=== PATIENT | male | born 2000 | race Two or more races ===

== ENCOUNTER 2022-07-30 05:51 | Outpatient (CLI) | payer OTHER | END 2022-07-30 05:52 | disposition EMS.NT | LOC: EMS 05:51 | DX: Z04.1 Encounter for examination and observation following transport accident (principal) ==

== ENCOUNTER 2024-01-13 00:26 | Emergency (ER) | payer OTHER ==
--- NOTE | 2024-01-13 01:17 | ED Physician Documentation ---
PD HPI SKIN - Stated complaint Stated Complaint: CAT SCRATCH ON FACE - Chief complaint Chief Complaint: Laceration - History obtained from History obtained from: Patient - Additional information Additional information: 23yM presents s/p cat scratch to left philtrum tonight. utd on childhood vaccines including tetanus. denies other injury. PD PAST MEDICAL HISTORY - Past Medical History Past Medical History: No - Past Surgical History Past Surgical History: No - Present Medications Home Medications: Ambulatory Orders Medication Instructions Recorded Confirmed No Known Home Medications 01/13/24 01/13/24 - Allergies Allergies/Adverse Reactions: Allergies Allergy/AdvReac Type Severity Reaction Status Date / Time Penicillins Allergy Unknown Verified 01/13/24 00:37 - Social History Does the pt smoke?: No Smoking Status: Never smoker Does the pt drink ETOH?: No Does the pt have substance abuse?: No - Immunizations Immunizations are current?: Yes - POLST Patient has POLST: No PD ED PE NORMAL - Vitals Vital signs reviewed: Yes - General General: Alert and oriented X 3, No acute distress, Well developed/nourished - HEENT HEENT: Atraumatic, PERRL, EOMI, Moist mucous membranes, Pharynx benign, Other (L philtrum vertical 1.5cm laceration extending across cesario border) Results - Vitals Vitals: Vital Signs - 24 hr 01/13/24 00:34 Temperature 36.5 C Heart Rate 105 H Respiratory 16 Rate Blood Pressure 149/69 H O2 Saturation 99 Oxygen O2 Source Room air Procedures - Laceration (location) Face Length in cm: 1.5 Wound type: Linear, Involvement of free margins of vermilion border Neurovascular status: Sensory intact, Motor intact, Vascular intact Tendon involvement: Tendon intact Anesthesia: Lidocaine 1% with epi Wound preparation: Irrigated copiously NS Skin layer closure: Nylon, Size #-0 - enter number (6), Sutures - enter # (4) Other: Patient tolerated well, No complications, Neurovascular intact, Dressing applied, Tetanus UTD PD Medical Decision Making - ED course ED course: 23yM p/w 1.5 laceration to philtrum from cat scratch, repaired without issue. return precautions given. plan to remove in 3-5 days. Departure - Departure Disposition: 01 Home, Self Care Clinical Impression: Laceration of face Condition: Stable Instructions: ED Laceration All Comments: You were seen in the emergency department for Cat of the face. 4 sutures were placed which needs to be removed in 3 to 5 days. Please keep the dressing clean and dry for 24 hours. You can cleanse gently thereafter with indirect water flow. Return to the emergency department if you have any new or worsening symptoms or other concerns.
[2024-01-13 01:22] VITALS: BP 129/76; O2SAT 100
== END 2024-01-13 01:23 | disposition home or self-care (01) ==
LOC: ED 00:26
DX: S00.81XA Abrasion of other part of head, initial encounter (principal); W55.03XA Scratched by cat, initial encounter
CPT/HCPCS: 12011; 99281

== ENCOUNTER 2024-01-18 15:37 | Emergency (ER) | payer OTHER ==
[2024-01-18 16:01] VITALS: BP 127/69; O2SAT 100
--- NOTE | 2024-01-18 16:08 | ED Physician Documentation ---
PD HPI SKIN - Stated complaint Stated Complaint: REMOVE STITCHES - Chief complaint Chief Complaint: Laceration - History obtained from History obtained from: Patient - Additional information Additional information: The patient returns to the emergency department chief complaint of need suture removal. He had sutures placed almost a week ago after his cat scratched him deeply. He denies any problems with the wound. No other complaints at this time. PD PAST MEDICAL HISTORY - Past Surgical History Past Surgical History: No - Present Medications Home Medications: Ambulatory Orders Medication Instructions Recorded Confirmed No Known Home Medications 01/13/24 01/18/24 - Allergies Allergies/Adverse Reactions: Allergies Allergy/AdvReac Type Severity Reaction Status Date / Time Penicillins Allergy Unknown Verified 01/18/24 15:53 - Social History Does the pt smoke?: No Smoking Status: Never smoker Does the pt drink ETOH?: No Does the pt have substance abuse?: No - Immunizations Immunizations are current?: Yes - POLST Patient has POLST: No PD ED PE NORMAL - Vitals Vital signs reviewed: Yes - General General: Alert and oriented X 3, No acute distress, Well developed/nourished - HEENT HEENT: PERRL, Moist mucous membranes, Other (Well-healed wound over left upper lip with [address] No wound dehiscence. Wound is dry and scabbed.) - Neck Neck: Supple, no meningeal sign - Respiratory Respiratory: No respiratory distress - Derm Derm: Warm and dry - Extremities Extremities: No deformity - Neuro Neuro: Alert and oriented X 3 - Psych Psych: Normal mood, Normal affect Results - Vitals Vitals: Vital Signs - 24 hr 01/18/24 15:50 Temperature 36.8 C Heart Rate 76 Respiratory 16 Rate Blood Pressure 127/69 O2 Saturation 100 Oxygen O2 Source Room air PD Medical Decision Making - ED course Complexity details: considered differential, d/w patient ED course: Sutures were removed by EDMD in the emergency department. Wound held up to stre tching after the suture removal. No dehiscence. We have discussed wound care at home and the usual indications for return. Departure - Departure Disposition: 01 Home, Self Care Clinical Impression: Visit for suture removal Condition: Stable Instructions: ED Wound Check Sutr Remove No Infec
== END 2024-01-18 16:15 | disposition home or self-care (01) ==
LOC: ED 15:37
DX: Z48.02 Encounter for removal of sutures (principal)
CPT/HCPCS: 99281; 99282

== ENCOUNTER 2024-02-16 21:22 | Emergency (ER) | payer OTHER ==
[2024-02-16 21:34] VITALS: BP 122/61; O2SAT 100
--- NOTE | 2024-02-16 21:50 | ED Physician Documentation ---
PD HPI SKIN - Stated complaint Stated Complaint: DOG BITE - Chief complaint Chief Complaint: Laceration - History obtained from History obtained from: Patient - Additional information Additional information: 23yM p/w dog bite from vaccinated dog just [place] as well as scratches to chest wall. L hand dominant. bite is long horizontal gash to L dorsal forearm. denies numbness, weakness, or pain along the bone or pain with movement PD PAST MEDICAL HISTORY - Past Medical History Past Medical History: No Cardiovascular: None Respiratory: None Neuro: None Endocrine/Autoimmune: None GI: None : None HEENT: None Psych: None Musculoskeletal: None Derm: None - Past Surgical History Past Surgical History: No - Present Medications Home Medications: Ambulatory Orders Medication Instructions Recorded Confirmed Amox/Clav 875/125 [Augmentin 1 tablet PO Q12H 7 Days #14 tablet 02/16/24 875/125 Tab] - Allergies Allergies/Adverse Reactions: Allergies Allergy/AdvReac Type Severity Reaction Status Date / Time Penicillins Allergy Unknown Verified 02/16/24 21:25 - Social History Does the pt smoke?: No Smoking Status: Never smoker Does the pt drink ETOH?: No Does the pt have substance abuse?: No - Immunizations Immunizations are current?: Yes - POLST Patient has POLST: No PD ED PE NORMAL - Vitals Vital signs reviewed: Yes - General General: Alert and oriented X 3, No acute distress, Well developed/nourished - HEENT HEENT: Atraumatic, PERRL, EOMI, Moist mucous membranes, Pharynx benign - Derm Derm: Normal color, Warm and dry, Other (3cm horizontal laceration to L dorsal forearm, hemostatic with no foreign body, gaping open. also with superficial puncture wound to dorsum of L hand. abrasions to L anterior chest wall) - Extremities Extremities: Other (csm intact LUE) Results - Vitals Vitals: Vital Signs - 24 hr 02/16/24 21:25 Temperature 36.8 C Heart Rate 75 Respiratory 16 Rate Blood Pressure 122/61 O2 Saturation 100 Oxygen O2 Source Room air Procedures - Laceration (location) Upper extremity left Length in cm: 3 Wound type: Linear, Into subcut fat Neurovascular status: Sensory intact, Motor intact, Vascular intact Tendon involvement: Tendon intact Anesthesia: Lidocaine 1% with epi Wound preparation: Irrigated copiously NS, Wound explored, To the base Skin layer closure: Nylon, Interrupted, Size #-0 - enter number (4), Sutures - enter # (3) Other: Patient tolerated well, No complications, Neurovascular intact, Dressing applied, Tetanus UTD PD Medical Decision Making - ED course ED course: 23yM p/w dog bite. washed and explored wound, with no foreign body. 3 stitches placed. states he had rash when given penicillin as a child but has no known allergies to amoxicillin or augmentin. after period of 1 hour monitoring in the ED s/p augmentin, patient is symptom free. return precautions given. plan to f/u in 14 days at [facility] for suture removal. Departure - Departure Disposition: 01 Home, Self Care Clinical Impression: Dog bite, Abrasions of multiple sites Condition: Stable Instructions: ED Bite Dog Prescriptions: Amox/Clav 875/125 [Augmentin 875/125 Tab] 1 tablet PO Q12H 7 Days #14 tablet Comments: You were seen in the emergency department for dog bite and scratches. Antibiotics sent to [facility]. Remove stitches in 14 days. Please follow-up with your primary care provider and return to the emergency department if you have any new or worsening symptoms or other concerns. Forms: PCP List
[2024-02-16] MEDS: LIDOCAINE 2%-EPI 1:100000 20 ML MDV SUBQ STA (21:55)
[2024-02-16] MEDS: AMOX/CLAV 875 MG/125 MG TABLET PO STA (21:55)
[2024-02-16] MEDS: BACITRACIN ZINC OINT 1 PACKET TOP STA (22:35)
== END 2024-02-16 22:42 | disposition home or self-care (01) ==
LOC: ED 21:22
DX: S51.812A Laceration without foreign body of left forearm, initial encounter (principal); S60.512A Abrasion of left hand, initial encounter; S20.312A Abrasion of left front wall of thorax, initial encounter; W54.0XXA Bitten by dog, initial encounter; Y93.89 Activity, other specified
CPT/HCPCS: 12002; 99283; A9270

== ENCOUNTER 2024-03-01 22:13 | Emergency (ER) | payer OTHER ==
--- NOTE | 2024-03-01 22:22 | ED Physician Documentation ---
History of Present Illness - Stated complaint Stated Complaint: STITCH REMOVAL - Chief complaint Chief Complaint: Laceration - History obtained from History obtained from: Patient - Additonal information Additional information: He presents for suture removal. He was here approximately 2 weeks ago and has a wound on the left forearm with 3 sutures in it. At the time of my evaluation the RN has already removed the sutures. Patient has no complaints. PD PAST MEDICAL HISTORY - Past Medical History Past Medical History: No Cardiovascular: None Respiratory: None Neuro: None Endocrine/Autoimmune: None GI: None : None HEENT: None Psych: None Musculoskeletal: None Derm: None - Past Surgical History Past Surgical History: No - Present Medications Home Medications: Ambulatory Orders Medication Instructions Recorded Confirmed Amox/Clav 875/125 [Augmentin 1 tablet PO Q12H 7 Days #14 tablet 02/16/24 875/125 Tab] - Allergies Allergies/Adverse Reactions: Allergies Allergy/AdvReac Type Severity Reaction Status Date / Time Penicillins Allergy Unknown Verified 03/01/24 22:17 - Social History Does the pt smoke?: No Smoking Status: Never smoker Does the pt drink ETOH?: No Does the pt have substance abuse?: No - Immunizations Immunizations are current?: Yes - POLST Patient has POLST: No PD ED PE NORMAL - Vitals Vital signs reviewed: Yes - General General: Alert and oriented X 3, No acute distress - Extremities Extremities: Other (Sutured wound clean dry and intact to the dorsal left forearm without signs of infection.) Results - Vitals Vitals: Vital Signs - 24 hr 03/01/24 22:17 Temperature 36.8 C Heart Rate 88 Respiratory 16 Rate Blood Pressure 130/66 O2 Saturation 100 Oxygen O2 Source Room air Departure - Departure Disposition: 01 Home, Self Care Clinical Impression: Visit for suture removal Condition: Good Record reviewed to determine appropriate education?: Yes Instructions: ED Wound Check Sutr Remove No Infec Forms: PCP List
[2024-03-01 22:33] VITALS: BP 130/66; O2SAT 100
== END 2024-03-01 22:26 | disposition home or self-care (01) ==
LOC: ED 22:13
DX: S51.812D Laceration without foreign body of left forearm, subsequent encounter (principal); X58.XXXD Exposure to other specified factors, subsequent encounter
CPT/HCPCS: 99281; 99282